=== PATIENT | male | born 1930 | race Caucasian/White ===

== ENCOUNTER 2017-03-11 14:14 | Inpatient (IN) | payer MEDICARE, OTHER ==
[~2017-03-11] VITALS: Ht 180.3 cm; Wt 75.5 kg
[2017-03-11] MEDS ORDERED: POLY17PO3 PO (15:16)
[2017-03-11] MEDS ORDERED: OLAN10TA9 PO (15:16)
[2017-03-11] MEDS ORDERED: TAMS0.4C2 PO (15:16)
[2017-03-11] MEDS ORDERED: LISI-170 PO (15:16)
[2017-03-11] MEDS ORDERED: ASPI-621 PO (15:16)
[2017-03-11] MEDS ORDERED: SENN-66 PO (15:16)
[2017-03-11] MEDS ORDERED: MAGN420T PO (15:16)
[2017-03-11 15:37] LABS: HEMOGLOBIN 12.2 g/dL (13.7-18.0); WHITE BLOOD COUNT 8.3 x10^3/uL (3.4-10)
[2017-03-11 15:44] LABS: ASPARTATE AMINO TRANSFERASE 9 U/L (15-37); BLOOD UREA NITROGEN 25 mg/dL (7-18)
[2017-03-11] MEDS ORDERED: CEFTRIAXONE PMX 1GM/50ML 50 ML ONE (16:26)
[2017-03-11] MEDS ORDERED: CEFTRIAXONE PMX 1GM/50ML 50 ML IV ONE (16:30)
[2017-03-11] MEDS ORDERED: SENNA/DOCUSATE TABLET PO PRN (17:00)
[2017-03-11] MEDS ORDERED: ACETAMINOPHEN 325 MG TABLET PO PRN (17:00)
[2017-03-11 17:54] VITALS: BP 188/76
[2017-03-11 19:48] VITALS: BP 158/74
[2017-03-11] MEDS: LISINOPRIL 20 MG TABLET PO SCH (22:54)
[2017-03-11] MEDS: OLANZAPINE 10 MG TABLET PO SCH (22:54)
[2017-03-11] MEDS: SODIUM CHLORIDE 0.9% 1,000 ML IV SCH (22:55)
[2017-03-12 01:41] VITALS: BP 171/74
[2017-03-12] MEDS ORDERED: hydrALAzine 20 MG/ML, 1ML IV ONE (03:00)
[2017-03-12 04:27] VITALS: BP 177/87
[2017-03-12 05:03] LABS: HEMATOCRIT 34.3 % (39.2-51.8); HEMOGLOBIN 11.3 g/dL (13.7-18.0); WHITE BLOOD COUNT 6.1 x10^3/uL (3.4-10)
[2017-03-12 05:12] LABS: BLOOD UREA NITROGEN 21 mg/dL (7-18)
[2017-03-12] MEDS: SODIUM CHLORIDE 0.9% 1,000 ML IV SCH (06:43)
[2017-03-12 07:53] VITALS: BP 160/74
[2017-03-12] MEDS ORDERED: MAGNESIUM OXIDE 420 MG PO SCH (09:00)
[2017-03-12] MEDS: TAMSULOSIN 0.4 MG CAP.ER.24H PO SCH (09:41)
[2017-03-12] MEDS: ASPIRIN 81 MG TABLET EC PO SCH (09:41)
[2017-03-12 12:59] VITALS: BP 134/66
[2017-03-12] MEDS: CEFTRIAXONE PMX 1GM/50ML 50 ML IV SCH (16:01)
[2017-03-12] MEDS ORDERED: OMNIPAQUE 350 MG/ML, 100ML BOTTLE ONE (18:06)
[2017-03-12 20:43] VITALS: BP 180/89
[2017-03-12] MEDS: LISINOPRIL 20 MG TABLET PO SCH (22:00)
[2017-03-12] MEDS: SODIUM CHLORIDE FLUSH 10ML SYR IVF SCH (22:00)
[2017-03-12] MEDS: OLANZAPINE 10 MG TABLET PO SCH (22:01)
[2017-03-13 02:06] VITALS: BP 172/74
[2017-03-13 06:02] LABS: HEMATOCRIT 36.2 % (39.2-51.8); HEMOGLOBIN 11.8 g/dL (13.7-18.0); WHITE BLOOD COUNT 5.6 x10^3/uL (3.4-10)
[2017-03-13 06:11] LABS: BLOOD UREA NITROGEN 15 mg/dL (7-18)
[2017-03-13] MEDS: ASPIRIN 81 MG TABLET EC PO SCH (10:18)
[2017-03-13] MEDS: TAMSULOSIN 0.4 MG CAP.ER.24H PO SCH (10:18)
[2017-03-13] MEDS: AMLODIPINE 5 MG TABLET PO SCH (10:18)
[2017-03-13] MEDS: SODIUM CHLORIDE FLUSH 10ML SYR IVF SCH ×2 (10:18→20:31)
[2017-03-13] MEDS: CEFTRIAXONE PMX 1GM/50ML 50 ML IV SCH (15:59)
[2017-03-13] MEDS: LISINOPRIL 20 MG TABLET PO SCH (20:31)
[2017-03-13] MEDS: OLANZAPINE 10 MG TABLET PO SCH (20:31)
[2017-03-13 21:54] VITALS: BP 154/75
[2017-03-14 01:47] VITALS: BP 143/65
[2017-03-14 05:34] LABS: HEMATOCRIT 33.7 % (39.2-51.8); HEMOGLOBIN 11.2 g/dL (13.7-18.0); WHITE BLOOD COUNT 5.3 x10^3/uL (3.4-10)
[2017-03-14 06:31] VITALS: BP 187/77
[2017-03-14] MEDS ORDERED: CEFD300C37 PO (08:21)
[2017-03-14] MEDS ORDERED: CEFDINIR 300 MG CAPSULE PO SCH (09:00)
[2017-03-14] MEDS: SODIUM CHLORIDE FLUSH 10ML SYR IVF SCH (09:00)
[2017-03-14] MEDS: ASPIRIN 81 MG TABLET EC PO SCH (09:48)
[2017-03-14] MEDS: AMLODIPINE 5 MG TABLET PO SCH (09:48)
[2017-03-14] MEDS: TAMSULOSIN 0.4 MG CAP.ER.24H PO SCH (09:48)
[2017-03-14 15:17] VITALS: BP 151/76
== END 2017-03-14 17:14 | disposition home or self-care (01) | DRG 689 ==
LOC: ED 16:00 → INTOOBSV 16:03 → EDIP 16:03 → OBSVTOIN 16:03 → ED 16:14 → 3NE 17:44
PROVIDERS: ADMIT Internal Medicine; ATTEND Internal Medicine
DX: N39.0 Urinary tract infection, site not specified (principal); E43 Unspecified severe protein-calorie malnutrition; R04.2 Hemoptysis; I10 Essential (primary) hypertension; N28.1 Cyst of kidney, acquired; Z66 Do not resuscitate; Z74.09 Other reduced mobility; Z79.82 Long term (current) use of aspirin; Z79.899 Other long term (current) drug therapy; Z86.73 Personal history of transient ischemic attack (TIA), and cerebral infarction without residual deficits; Z87.01 Personal history of pneumonia (recurrent); Z88.8 Allergy status to other drugs, medicaments and biological substances; Z99.3 Dependence on wheelchair; J44.9 Chronic obstructive pulmonary disease, unspecified
CPT/HCPCS: 36415; 71010; 71275; 76700; 80048; 80053; 81001; 83605; 83690; 83735; 84100; 84443; 85025; 85610; 87040; 87086; 93005; 96365; J0696; Q9967; J0360; J7030

== ENCOUNTER 2018-02-08 12:56 | Inpatient (IN) | payer MEDICARE ==
[~2018-02-08] VITALS: Ht 180.3 cm; Wt 75.2 kg
[~2018-02-08 12:56] MED LIST: ASPI-621 PO; CEFD300C37 PO; LISI-170 PO; MAGN420T PO; OLAN10TA9 PO; POLY17PO3 PO; SENN-66 PO; TAMS0.4C2 PO
[2018-02-08] MEDS ORDERED: SODIUM CHLORIDE 0.9% 1,000ML IVBOLUS ONE (13:30)
[2018-02-08 14:25] LABS: ALANINE AMINOTRANSFERASE 16 U/L (12-78); ALBUMIN 2.4 g/dL (3.4-5.0); ANION GAP 6 mmol/L (5-15); CALCIUM 8.4 mg/dL (8.5-10.1); CHLORIDE 104 mmol/L (98-107); CREATININE 1.33 mg/dL (0.7-1.3)
[2018-02-08 14:27] LABS: ALKALINE PHOSPHATASE 63 U/L (45-117); BILIRUBIN,TOTAL 0.3 mg/dL (0.2-1.0); TOTAL PROTEIN 7.9 g/dL (6.4-8.2)
[2018-02-08 14:37] LABS: BASOPHILS # (AUTO) 0.02 x10^3/uL (0-0.1); BASOPHILS % (AUTO) 0 % (0-1); EOSINOPHILS # (AUTO) 0.13 x10^3/uL (0-0.4); EOSINOPHILS % (AUTO) 2 % (1-7); LYMPHOCYTES # (AUTO) 1.82 x10^3/uL (1-3.4); LYMPHOCYTES % (AUTO) 29 % (22-44); MD NO; MEAN CORPUSCULAR HEMOGLOBIN 30.7 pg (27.5-34.5); MEAN CORPUSCULAR HGB CONC 33.1 g/dL (33.2-36.2); MEAN CORPUSCULAR VOLUME 92.6 fL (81-97); MEAN PLATELET VOLUME 8.5 fL (7.4-10.4); MONOCYTES # (AUTO) 0.62 x10^3/uL (0.2-0.8); MONOCYTES % (AUTO) 10 % (2-9); NEUTROPHILS # (AUTO) 3.57 x10^3/uL (1.8-6.8); NEUTROPHILS % (AUTO) 58 % (42-75); PLATELET COUNT 221 x10^3/uL (130-400); RED BLOOD COUNT 3.15 x10^6/uL (4.38-5.82); RED CELL DISTRIBUTION WIDTH 14.7 % (9.4-14.8)
[2018-02-08 15:01] LABS: CULTURE INDICATED? YES; MICROSCOPIC INDICATED
[2018-02-08] MEDS ORDERED: CEFTRIAXONE PMX 1GM/50ML 50 ML IV ONE (15:30)
[2018-02-08 16:20] VITALS: BP 150/67
[2018-02-08] MEDS ORDERED: TEMAZEPAM 15 MG CAPSULE PO PRN (16:30)
[2018-02-08] MEDS ORDERED: hydrALAzine 20 MG/ML, 1ML IVPush PRN (16:30)
[2018-02-08] MEDS ORDERED: ONDANSETRON 2MG/ML, 2ML IVPush PRN (16:30)
[2018-02-08] MEDS ORDERED: morphine SULFATE 10 MG/ML, 1ML IVPush PRN (16:30)
[2018-02-08] MEDS ORDERED: ACETAMINOPHEN 325 MG TABLET PO PRN (16:30)
[2018-02-08] MEDS: SODIUM CHLORIDE 0.9% 1,000 ML IV SCH (16:57)
[2018-02-08] MEDS: HEPARIN 5,000 UNITS/ML, 1ML SQ SCH ×2 (16:58→17:05)
[2018-02-08] MEDS ORDERED: SENNA/DOCUSATE TABLET PO PRN (17:00)
[2018-02-08 17:32] LABS: FREE T4 (FREE THYROXINE) 1.17 ng/dL (0.76-1.46); THYROID STIMULATING HORMONE 1.61 mIU/L (0.358-3.740)
[2018-02-08 18:17] LABS: CLOSTRIDIUM DIFFICILE ANTIGEN POSITIVE; CLOSTRIDIUM DIFFICILE TOXIN NEGATIVE (Negative)
[2018-02-08 18:56] VITALS: BP 136/66
[2018-02-08] MEDS: POLYETHYLENE GLYCOL 17 GM PACKET PO SCH (19:55)
[2018-02-08] MEDS: OLANZAPINE 10 MG TABLET PO SCH (19:55)
[2018-02-08] MEDS: LISINOPRIL 20 MG TABLET PO SCH (19:55)
[2018-02-09] MEDS: HEPARIN 5,000 UNITS/ML, 1ML SQ SCH ×4 (00:30→23:54)
[2018-02-09 01:15] VITALS: BP 157/66
[2018-02-09] MEDS: CEFTRIAXONE PMX 1GM/50ML 50 ML IV SCH (03:00)
[2018-02-09 05:03] LABS: ALANINE AMINOTRANSFERASE 14 U/L (12-78); ALBUMIN 2.2 g/dL (3.4-5.0); ANION GAP 7 mmol/L (5-15); CALCIUM 8.2 mg/dL (8.5-10.1); CHLORIDE 108 mmol/L (98-107); CREATININE 0.95 mg/dL (0.7-1.3); TOTAL IRON BINDING CAPACITY 182 mcg/dL (250-450)
[2018-02-09 05:07] LABS: ALKALINE PHOSPHATASE 60 U/L (45-117); BILIRUBIN,TOTAL 0.3 mg/dL (0.2-1.0); CHOLESTEROL, TOTAL 136 mg/dL (140-239); HDL CHOL % 20 % (26-37); HDL CHOLESTEROL (DIRECT) 27 mg/dL (40-60); LDL CHOLESTEROL,CALCULATED 73 mg/dL (54-169); LDL/HDL RATIO 2.7 (0.5-3.0); TOTAL PROTEIN 7.4 g/dL (6.4-8.2); TRIGLYCERIDES 178 mg/dL (50-200); VLDL CHOLESTEROL 36 mg/dL (0-25)
[2018-02-09 05:11] LABS: % IRON SATURATION 20 % (20-55); IRON LEVEL 37 mcg/dL (65-175)
[2018-02-09 05:13] LABS: BASOPHILS # (AUTO) 0.05 x10^3/uL (0-0.1); BASOPHILS % (AUTO) 1 % (0-1); EOSINOPHILS # (AUTO) 0.25 x10^3/uL (0-0.4); EOSINOPHILS % (AUTO) 5 % (1-7); LYMPHOCYTES # (AUTO) 1.53 x10^3/uL (1-3.4); LYMPHOCYTES % (AUTO) 29 % (22-44); MD SCAN; MEAN CORPUSCULAR HEMOGLOBIN 30.3 pg (27.5-34.5); MEAN CORPUSCULAR VOLUME 91.9 fL (81-97); MEAN PLATELET VOLUME 9.2 fL (7.4-10.4); MONOCYTES # (AUTO) 0.43 x10^3/uL (0.2-0.8); MONOCYTES % (AUTO) 8 % (2-9); NEUTROPHILS # (AUTO) 3.11 x10^3/uL (1.8-6.8); NEUTROPHILS % (AUTO) 58 % (42-75); PLATELET COUNT 183 x10^3/uL (130-400); RED BLOOD COUNT 3.28 x10^6/uL (4.38-5.82); RED CELL DISTRIBUTION WIDTH 14.8 % (9.4-14.8)
[2018-02-09] MEDS: SODIUM CHLORIDE 0.9% 1,000 ML IV SCH (05:55)
[2018-02-09 07:32] VITALS: BP 156/67
[2018-02-09] MEDS: TAMSULOSIN 0.4 MG CAP.ER.24H PO SCH (08:31)
[2018-02-09] MEDS: MAGNESIUM OXIDE 400 MG TABLET PO SCH (08:31)
[2018-02-09] MEDS: ASPIRIN 81 MG TABLET EC PO SCH (08:31)
[2018-02-09] MEDS: POLYETHYLENE GLYCOL 17 GM PACKET PO SCH ×2 (08:32→21:00)
[2018-02-09 12:52] VITALS: BP 156/55
[2018-02-09 18:50] VITALS: BP 162/77
[2018-02-09] MEDS: LISINOPRIL 20 MG TABLET PO SCH (19:32)
[2018-02-09] MEDS: OLANZAPINE 10 MG TABLET PO SCH (19:33)
[2018-02-10 01:53] VITALS: BP 136/70
[2018-02-10] MEDS: CEFTRIAXONE PMX 1GM/50ML 50 ML IV SCH (03:25)
[2018-02-10 07:56] VITALS: BP 170/74
[2018-02-10] MEDS: HEPARIN 5,000 UNITS/ML, 1ML SQ SCH ×3 (08:20→23:28)
[2018-02-10] MEDS: MAGNESIUM OXIDE 400 MG TABLET PO SCH (08:21)
[2018-02-10] MEDS: ASPIRIN 81 MG TABLET EC PO SCH (08:21)
[2018-02-10] MEDS: POLYETHYLENE GLYCOL 17 GM PACKET PO SCH ×2 (08:21→21:07)
[2018-02-10] MEDS: TAMSULOSIN 0.4 MG CAP.ER.24H PO SCH (08:21)
[2018-02-10 08:34] VITALS: BP 146/64
[2018-02-10 17:21] VITALS: BP 167/80
[2018-02-10] MEDS: LISINOPRIL 20 MG TABLET PO SCH ×2 (17:24→21:07)
[2018-02-10 19:04] VITALS: BP 143/69
[2018-02-10] MEDS: OLANZAPINE 10 MG TABLET PO SCH (21:07)
[2018-02-11 01:15] VITALS: BP 156/72
[2018-02-11] MEDS: CEFTRIAXONE PMX 1GM/50ML 50 ML IV SCH (03:22)
[2018-02-11 07:12] VITALS: BP 162/70
[2018-02-11] MEDS: POLYETHYLENE GLYCOL 17 GM PACKET PO SCH (08:26)
[2018-02-11] MEDS: ASPIRIN 81 MG TABLET EC PO SCH (08:27)
[2018-02-11] MEDS: MAGNESIUM OXIDE 400 MG TABLET PO SCH (08:27)
[2018-02-11] MEDS: TAMSULOSIN 0.4 MG CAP.ER.24H PO SCH (08:27)
[2018-02-11] MEDS: LISINOPRIL 20 MG TABLET PO SCH (08:28)
[2018-02-11] MEDS: HEPARIN 5,000 UNITS/ML, 1ML SQ SCH (08:29)
[2018-02-11] MEDS ORDERED: LACT1CAP24 PO (11:13)
[2018-02-11] MEDS ORDERED: CEFD300C37 PO (11:13)
[2018-02-11] MEDS ORDERED: SIMV10TA PO (11:42)
== END 2018-02-11 14:19 | disposition home or self-care (01) | DRG 682 ==
LOC: ED 15:22 → EDIP 15:27 → SUATTDRO 15:45 → ED 15:49 → 3NW 16:05
PROVIDERS: ADMIT Hospitalist; ATTEND Hospitalist
PROC: 0T9B70Z Drainage of Bladder with Drainage Device, Via Natural or Artificial Opening (ICD-10-PCS; principal; 2018-02-08)
DX: N17.0 Acute kidney failure with tubular necrosis (principal); E43 Unspecified severe protein-calorie malnutrition; N39.0 Urinary tract infection, site not specified; D64.9 Anemia, unspecified; E86.0 Dehydration; B96.20 Unspecified Escherichia coli [E. coli] as the cause of diseases classified elsewhere; Z88.8 Allergy status to other drugs, medicaments and biological substances; E78.5 Hyperlipidemia, unspecified; F31.9 Bipolar disorder, unspecified; I10 Essential (primary) hypertension; N40.0 Benign prostatic hyperplasia without lower urinary tract symptoms; I69.398 Other sequelae of cerebral infarction; Z99.3 Dependence on wheelchair; Z68.23 Body mass index [BMI] 23.0-23.9, adult
CPT/HCPCS: 36415; 80053; 80061; 81001; 83540; 83550; 83605; 83735; 84100; 84145; 84439; 84443; 85025; 87040; 87077; 87086; 87186; 87324; 87493; 96361; 96374; J0696; J1644; J7030

== ENCOUNTER 2018-04-13 22:31 | Inpatient (IN) | payer MEDICARE, OTHER ==
[~2018-04-13] VITALS: Ht 182.9 cm; Wt 72.0 kg
[~2018-04-13 22:31] MED LIST changes: +LACT1CAP24 PO; +SIMV10TA PO
[2018-04-13] MEDS ORDERED: SODIUM CHLORIDE 0.9% 1,000 ML IV ONE (22:44)
[2018-04-13 23:23] LABS: MEAN CORPUSCULAR HEMOGLOBIN 31.3 pg (27.5-34.5); MEAN CORPUSCULAR VOLUME 92.1 fL (81-97); MEAN PLATELET VOLUME 8.5 fL (7.4-10.4); PLATELET COUNT 114 x10^3/uL (130-400); RED BLOOD COUNT 2.91 x10^6/uL (4.38-5.82); RED CELL DISTRIBUTION WIDTH 15.3 % (9.4-14.8)
[2018-04-13 23:28] LABS: ALANINE AMINOTRANSFERASE 17 U/L (12-78); ALBUMIN 2.2 g/dL (3.4-5.0); ANION GAP 6 mmol/L (5-15); CALCIUM 8.1 mg/dL (8.5-10.1); CHLORIDE 103 mmol/L (98-107)
[2018-04-13 23:31] LABS: ALKALINE PHOSPHATASE 147 U/L (45-117); BILIRUBIN,TOTAL 0.5 mg/dL (0.2-1.0); CREATININE 1.44 mg/dL (0.7-1.3); TOTAL PROTEIN 6.5 g/dL (6.4-8.2)
[2018-04-13] MEDS ORDERED: CEFTRIAXONE PMX 1GM/50ML 50 ML ONE (23:51)
[2018-04-13 23:59] LABS: MICROSCOPIC INDICATED
[2018-04-14] MEDS ORDERED: CEFTRIAXONE 1,000 MG in SODIUM CHLORIDE 0.9% 50 ML IVPB ONE
[2018-04-14 00:09] LABS: CULTURE INDICATED? YES
[2018-04-14 00:14] LABS: BASOPHILS % (AUTO) 0 % (0-1); EOSINOPHILS # (AUTO) 0.01 x10^3/uL (0-0.4); EOSINOPHILS % (AUTO) 0 % (1-7); LYMPHOCYTES # (AUTO) 0.12 x10^3/uL (1-3.4); LYMPHOCYTES % (AUTO) 3 % (22-44); MD SCAN; MONOCYTES # (AUTO) 0.01 x10^3/uL (0.2-0.8); MONOCYTES % (AUTO) 0 % (2-9); NEUTROPHILS # (AUTO) 4.69 x10^3/uL (1.8-6.8); NEUTROPHILS % (AUTO) 97 % (42-75)
[2018-04-14] MEDS ORDERED: NOREPINEPHRINE 4 MG in SODIUM CHLORIDE 0.9% 246 ML IV PRN ×2 (00:30→01:00)
[2018-04-14] MEDS ORDERED: SODIUM CHLORIDE 0.9% 1,000ML IVBOLUS ONE ×2 (00:30)
[2018-04-14] MEDS ORDERED: PHARMACOKINETIC CONSULTATION MC ONE (01:00)
[2018-04-14] MEDS ORDERED: POLYETHYLENE GLYCOL 17 GM PACKET PO PRN (01:00)
[2018-04-14] MEDS ORDERED: ONDANSETRON 2MG/ML, 2ML IVPush PRN (01:00)
[2018-04-14] MEDS ORDERED: VANCOMYCIN PER PHARMACY MC PRN ×2 (01:00→11:30)
[2018-04-14] MEDS ORDERED: morphine SULFATE 10 MG/ML, 1ML IVPush PRN (01:00)
[2018-04-14] MEDS ORDERED: DOCUSATE 100 MG CAPSULE PO PRN (01:00)
[2018-04-14] MEDS ORDERED: VANCOMYCIN 1,600 MG in SODIUM CHLORIDE 0.9% 250 ML IV ONE (01:00)
[2018-04-14] MEDS ORDERED: HYDROcodone/APAP 5/325 TABLET PO PRN (01:00)
[2018-04-14] MEDS ORDERED: ACETAMINOPHEN 325 MG TABLET PO PRN (01:00)
[2018-04-14] MEDS: ENOXAPARIN 40 MG/0.4 ML SQ SCH (02:10)
[2018-04-14 02:22] VITALS: BP 97/43
[2018-04-14] MEDS ORDERED: NOREPINEPHRINE 8 MG in SODIUM CHLORIDE 0.9% 242 ML IV PRN (04:06)
[2018-04-14] MEDS: NS + 20MEQ KCL 1,000 ML IV SCH ×2 (04:16→12:39)
[2018-04-14 04:59] LABS: MEAN CORPUSCULAR HEMOGLOBIN 31.9 pg (27.5-34.5); MEAN CORPUSCULAR VOLUME 93.7 fL (81-97); MEAN PLATELET VOLUME 9.1 fL (7.4-10.4); PLATELET COUNT 108 x10^3/uL (130-400); RED BLOOD COUNT 2.86 x10^6/uL (4.38-5.82); RED CELL DISTRIBUTION WIDTH 14.6 % (9.4-14.8)
[2018-04-14 05:14] LABS: ANION GAP 6 mmol/L (5-15); CALCIUM 7.5 mg/dL (8.5-10.1); CHLORIDE 110 mmol/L (98-107); CREATININE 1.17 mg/dL (0.7-1.3)
[2018-04-14] MEDS ORDERED: VASOPRESSIN 100 UNIT in SODIUM CHLORIDE 0.9% 495 ML IV PRN (05:30)
[2018-04-14 05:34] LABS: MD YES
[2018-04-14 05:36] LABS: ANISOCYTOSIS 1+; BAND#(MANUAL) 0.92 x10^3/uL; BANDS%(MANUAL) 7 % (0-7); LYMPH#(MANUAL) 0.66 x10^3/uL (1-3.4); LYMPHS% (MANUAL) 5 % (22-44); MONOS#(MANUAL) 0.26 x10^3/uL (0.3-2.7); MONOS% (MANUAL) 2 % (2-9); OVALOCYTES 1+; SEG#(MANUAL) 11.35 x10^3/uL (1.8-6.8); SEGS% (MANUAL) 86 % (42-75)
[2018-04-14 05:37] LABS: <PLATELET ESTIMATE> ADEQUATE; <PLT MORPHOLOGY> NORMAL PLT MORPH
[2018-04-14] MEDS: TAMSULOSIN 0.4 MG CAP.ER.24H PO SCH (08:36)
[2018-04-14] MEDS: SENNA/DOCUSATE TABLET PO SCH (08:36)
[2018-04-14] MEDS: ASPIRIN 81 MG TABLET EC PO SCH (08:36)
[2018-04-14] MEDS: FAMOTIDINE 20 MG TABLET PO SCH ×2 (08:36→21:20)
[2018-04-14] MEDS: MEROPENEM 1 GM in SODIUM CHLORIDE 0.9% 100 ML IV SCH ×2 (11:53→20:45)
[2018-04-14] MEDS ORDERED: PHARMACOKINETIC MONITORING MC PRN (12:00)
[2018-04-14] MEDS ORDERED: VANCOMYCIN 1,500 MG in SODIUM CHLORIDE 0.9% 250 ML IV SCH (12:30)
[2018-04-14] MEDS: SIMVASTATIN 5 MG TABLET PO SCH (21:19)
[2018-04-14] MEDS: OLANZAPINE 10 MG TABLET PO SCH (21:19)
[2018-04-15] MEDS ORDERED: CEFTRIAXONE PMX 1GM/50ML 50 ML IV SCH
[2018-04-15] MEDS: ENOXAPARIN 40 MG/0.4 ML SQ SCH ×2 (01:00→01:56)
[2018-04-15] MEDS: MEROPENEM 1 GM in SODIUM CHLORIDE 0.9% 100 ML IV SCH ×3 (03:40→19:43)
[2018-04-15 05:05] LABS: ALANINE AMINOTRANSFERASE 16 U/L (12-78); ALBUMIN 1.9 g/dL (3.4-5.0); ANION GAP 8 mmol/L (5-15); CALCIUM 7.8 mg/dL (8.5-10.1); CHLORIDE 114 mmol/L (98-107)
[2018-04-15 05:08] LABS: ALKALINE PHOSPHATASE 73 U/L (45-117); BILIRUBIN,TOTAL 0.3 mg/dL (0.2-1.0); TOTAL PROTEIN 5.7 g/dL (6.4-8.2)
[2018-04-15 05:13] LABS: MEAN CORPUSCULAR HEMOGLOBIN 31.6 pg (27.5-34.5); MEAN CORPUSCULAR HGB CONC 33.9 g/dL (33.2-36.2); MEAN CORPUSCULAR VOLUME 93.3 fL (81-97); RED BLOOD COUNT 2.66 x10^6/uL (4.38-5.82); RED CELL DISTRIBUTION WIDTH 15.9 % (9.4-14.8)
[2018-04-15 05:55] LABS: BASOPHILS # (AUTO) 0.02 x10^3/uL (0-0.1); BASOPHILS % (AUTO) 0 % (0-1); EOSINOPHILS # (AUTO) 0.15 x10^3/uL (0-0.4); EOSINOPHILS % (AUTO) 3 % (1-7); LYMPHOCYTES # (AUTO) 0.88 x10^3/uL (1-3.4); LYMPHOCYTES % (AUTO) 15 % (22-44); MD SCAN; MEAN PLATELET VOLUME 8.8 fL (7.4-10.4); MONOCYTES # (AUTO) 0.58 x10^3/uL (0.2-0.8); MONOCYTES % (AUTO) 10 % (2-9); NEUTROPHILS # (AUTO) 4.37 x10^3/uL (1.8-6.8); NEUTROPHILS % (AUTO) 73 % (42-75); PLATELET COUNT 95 x10^3/uL (130-400)
[2018-04-15] MEDS: D5%-0.9% NACL+KCL 20MEQ 1,000 ML IV SCH ×2 (06:16→18:22)
[2018-04-15] MEDS: ASPIRIN 81 MG TABLET EC PO SCH (08:47)
[2018-04-15] MEDS: TAMSULOSIN 0.4 MG CAP.ER.24H PO SCH (08:47)
[2018-04-15] MEDS: SENNA/DOCUSATE TABLET PO SCH (08:47)
[2018-04-15] MEDS: FAMOTIDINE 20 MG TABLET PO SCH ×2 (08:47→20:47)
[2018-04-15] MEDS ORDERED: VANCOMYCIN 1,500 MG in SODIUM CHLORIDE 0.9% 250 ML IV SCH (14:00)
[2018-04-15 15:06] VITALS: BP 160/70
[2018-04-15] MEDS ORDERED: POTASSIUM CHLORIDE 20 MEQ TAB.ER.PRT PO ONE (17:00)
[2018-04-15 18:40] VITALS: BP 161/68
[2018-04-15] MEDS: OLANZAPINE 10 MG TABLET PO SCH (20:47)
[2018-04-15] MEDS: SIMVASTATIN 5 MG TABLET PO SCH (20:49)
[2018-04-16] MEDS: ENOXAPARIN 40 MG/0.4 ML SQ SCH (00:53)
[2018-04-16 01:20] VITALS: BP 163/67
[2018-04-16] MEDS: MEROPENEM 1 GM in SODIUM CHLORIDE 0.9% 100 ML IV SCH ×3 (02:46→18:26)
[2018-04-16 05:42] LABS: CHLORIDE 114 mmol/L (98-107)
[2018-04-16 05:46] LABS: BASOPHILS # (AUTO) 0.02 x10^3/uL (0-0.1); BASOPHILS % (AUTO) 0 % (0-1); EOSINOPHILS # (AUTO) 0.17 x10^3/uL (0-0.4); EOSINOPHILS % (AUTO) 3 % (1-7); LYMPHOCYTES # (AUTO) 1.21 x10^3/uL (1-3.4); LYMPHOCYTES % (AUTO) 24 % (22-44); MD NO; MEAN CORPUSCULAR HEMOGLOBIN 31.2 pg (27.5-34.5); MEAN CORPUSCULAR HGB CONC 33.4 g/dL (33.2-36.2); MEAN CORPUSCULAR VOLUME 93.4 fL (81-97); MEAN PLATELET VOLUME 9.1 fL (7.4-10.4); MONOCYTES # (AUTO) 0.49 x10^3/uL (0.2-0.8); MONOCYTES % (AUTO) 10 % (2-9); NEUTROPHILS # (AUTO) 3.24 x10^3/uL (1.8-6.8); NEUTROPHILS % (AUTO) 63 % (42-75); PLATELET COUNT 130 x10^3/uL (130-400); RED CELL DISTRIBUTION WIDTH 15.7 % (9.4-14.8)
[2018-04-16 05:49] LABS: ALANINE AMINOTRANSFERASE 18 U/L (12-78); ALBUMIN 2.1 g/dL (3.4-5.0); ALKALINE PHOSPHATASE 91 U/L (45-117); ANION GAP 6 mmol/L (5-15); BILIRUBIN,TOTAL 0.2 mg/dL (0.2-1.0); CALCIUM 8.3 mg/dL (8.5-10.1); CREATININE 0.82 mg/dL (0.7-1.3); TOTAL PROTEIN 6.2 g/dL (6.4-8.2)
[2018-04-16] MEDS: D5%-0.9% NACL+KCL 20MEQ 1,000 ML IV SCH (06:35)
[2018-04-16 06:59] LABS: HIT RESULT NEGATIVE (NEGATIVE)
[2018-04-16 08:35] VITALS: BP 162/59
[2018-04-16] MEDS: SENNA/DOCUSATE TABLET PO SCH (09:00)
[2018-04-16] MEDS: FAMOTIDINE 20 MG TABLET PO SCH ×2 (09:00→20:15)
[2018-04-16] MEDS: ASPIRIN 81 MG TABLET EC PO SCH (09:00)
[2018-04-16] MEDS: TAMSULOSIN 0.4 MG CAP.ER.24H PO SCH (09:00)
[2018-04-16 13:34] VITALS: BP 149/63
[2018-04-16 19:53] VITALS: BP 190/62
[2018-04-16] MEDS: LORazepam 2 MG/ML, 1ML IVPush PRN (20:15)
[2018-04-16] MEDS: SIMVASTATIN 5 MG TABLET PO SCH (20:15)
[2018-04-16] MEDS: OLANZAPINE 10 MG TABLET PO SCH (20:16)
[2018-04-17] MEDS: ENOXAPARIN 40 MG/0.4 ML SQ SCH ×2 (00:55→22:44)
[2018-04-17 01:54] VITALS: BP 174/66
[2018-04-17] MEDS: MEROPENEM 1 GM in SODIUM CHLORIDE 0.9% 100 ML IV SCH ×3 (03:17→19:42)
[2018-04-17] MEDS: FAMOTIDINE 20 MG TABLET PO SCH ×2 (08:07→19:43)
[2018-04-17] MEDS: SENNA/DOCUSATE TABLET PO SCH (08:07)
[2018-04-17] MEDS: TAMSULOSIN 0.4 MG CAP.ER.24H PO SCH (08:07)
[2018-04-17] MEDS: ASPIRIN 81 MG TABLET EC PO SCH (08:07)
[2018-04-17 08:50] VITALS: BP 162/81
[2018-04-17 13:13] VITALS: BP 165/90
[2018-04-17 18:58] VITALS: BP 182/72
[2018-04-17] MEDS: LORazepam 2 MG/ML, 1ML IVPush PRN (19:43)
[2018-04-17] MEDS: SIMVASTATIN 5 MG TABLET PO SCH (19:43)
[2018-04-17] MEDS: OLANZAPINE 10 MG TABLET PO SCH (19:43)
[2018-04-18] MEDS: CEFTAZIDIME 2,000 MG in SODIUM CHLORIDE 0.9% 50 ML IV SCH ×3 (00:05→16:22)
[2018-04-18 01:13] VITALS: BP 168/73
[2018-04-18 04:30] LABS: BASOPHILS # (AUTO) 0.02 x10^3/uL (0-0.1); BASOPHILS % (AUTO) 0 % (0-1); EOSINOPHILS # (AUTO) 0.34 x10^3/uL (0-0.4); EOSINOPHILS % (AUTO) 6 % (1-7); LYMPHOCYTES # (AUTO) 1.73 x10^3/uL (1-3.4); LYMPHOCYTES % (AUTO) 31 % (22-44); MD NO; MEAN CORPUSCULAR HEMOGLOBIN 30.8 pg (27.5-34.5); MEAN CORPUSCULAR HGB CONC 33.3 g/dL (33.2-36.2); MEAN CORPUSCULAR VOLUME 92.5 fL (81-97); MEAN PLATELET VOLUME 8.8 fL (7.4-10.4); MONOCYTES # (AUTO) 0.55 x10^3/uL (0.2-0.8); MONOCYTES % (AUTO) 10 % (2-9); NEUTROPHILS # (AUTO) 2.94 x10^3/uL (1.8-6.8); NEUTROPHILS % (AUTO) 53 % (42-75); PLATELET COUNT 181 x10^3/uL (130-400); RED BLOOD COUNT 3.07 x10^6/uL (4.38-5.82); RED CELL DISTRIBUTION WIDTH 15.2 % (9.4-14.8)
[2018-04-18 04:36] LABS: CALCIUM 8.3 mg/dL (8.5-10.1); CHLORIDE 113 mmol/L (98-107)
[2018-04-18 04:40] LABS: ANION GAP 5 mmol/L (5-15); CREATININE 0.64 mg/dL (0.7-1.3)
[2018-04-18 06:35] VITALS: BP 139/77
[2018-04-18] MEDS: TAMSULOSIN 0.4 MG CAP.ER.24H PO SCH (08:27)
[2018-04-18] MEDS: ASPIRIN 81 MG TABLET EC PO SCH (08:27)
[2018-04-18] MEDS: FAMOTIDINE 20 MG TABLET PO SCH ×2 (08:27→19:28)
[2018-04-18] MEDS: SENNA/DOCUSATE TABLET PO SCH (08:27)
[2018-04-18 12:04] VITALS: BP 177/79
[2018-04-18 19:06] VITALS: BP 161/67
[2018-04-18] MEDS: ENOXAPARIN 40 MG/0.4 ML SQ SCH (19:15)
[2018-04-18] MEDS: OLANZAPINE 10 MG TABLET PO SCH (19:28)
[2018-04-18] MEDS: SIMVASTATIN 5 MG TABLET PO SCH (19:29)
[2018-04-19] MEDS: CEFTAZIDIME 2,000 MG in SODIUM CHLORIDE 0.9% 50 ML IV SCH ×3 (00:12→16:24)
[2018-04-19 01:41] VITALS: BP 158/67
[2018-04-19 07:36] VITALS: BP 156/67
[2018-04-19] MEDS: TAMSULOSIN 0.4 MG CAP.ER.24H PO SCH (09:05)
[2018-04-19] MEDS: ASPIRIN 81 MG TABLET EC PO SCH (09:05)
[2018-04-19] MEDS: FAMOTIDINE 20 MG TABLET PO SCH ×2 (09:05→21:59)
[2018-04-19] MEDS: SENNA/DOCUSATE TABLET PO SCH (09:05)
[2018-04-19 13:07] VITALS: BP 172/63
[2018-04-19 18:55] VITALS: BP 176/76
[2018-04-19 21:00] VITALS: BP 178/70
[2018-04-19] MEDS: OLANZAPINE 10 MG TABLET PO SCH (21:59)
[2018-04-19] MEDS: SIMVASTATIN 5 MG TABLET PO SCH (21:59)
[2018-04-20] MEDS: ENOXAPARIN 40 MG/0.4 ML SQ SCH (00:22)
[2018-04-20] MEDS: CEFTAZIDIME 2,000 MG in SODIUM CHLORIDE 0.9% 50 ML IV SCH ×3 (00:26→16:05)
[2018-04-20 01:11] VITALS: BP 158/65
[2018-04-20 08:24] VITALS: BP 183/80
[2018-04-20] MEDS: FINASTERIDE 5 MG TABLET PO SCH (08:37)
[2018-04-20] MEDS: SENNA/DOCUSATE TABLET PO SCH (08:37)
[2018-04-20] MEDS: TAMSULOSIN 0.4 MG CAP.ER.24H PO SCH (08:38)
[2018-04-20] MEDS: FAMOTIDINE 20 MG TABLET PO SCH ×2 (08:38→20:52)
[2018-04-20] MEDS: ASPIRIN 81 MG TABLET EC PO SCH (08:38)
[2018-04-20] MEDS: ERYTHROMYCIN OPHTH 0.5%, 1GM EACHEYE SCH ×3 (11:30→20:51)
[2018-04-20 13:02] VITALS: BP 168/85
[2018-04-20 19:40] VITALS: BP 182/77
[2018-04-20 20:50] VITALS: BP 150/81
[2018-04-20] MEDS: LISINOPRIL 20 MG TABLET PO SCH (20:51)
[2018-04-20] MEDS: OLANZAPINE 10 MG TABLET PO SCH (20:52)
[2018-04-20] MEDS: SIMVASTATIN 5 MG TABLET PO SCH (20:52)
[2018-04-21] MEDS: CEFTAZIDIME 2,000 MG in SODIUM CHLORIDE 0.9% 50 ML IV SCH ×3 (00:31→15:24)
[2018-04-21] MEDS: ENOXAPARIN 40 MG/0.4 ML SQ SCH (00:31)
[2018-04-21 02:00] VITALS: BP 157/74
[2018-04-21] MEDS: ERYTHROMYCIN OPHTH 0.5%, 1GM EACHEYE SCH ×4 (06:22→20:47)
[2018-04-21 08:00] VITALS: BP 157/67
[2018-04-21] MEDS: ASPIRIN 81 MG TABLET EC PO SCH (08:34)
[2018-04-21] MEDS: FINASTERIDE 5 MG TABLET PO SCH (08:35)
[2018-04-21] MEDS: SENNA/DOCUSATE TABLET PO SCH (08:35)
[2018-04-21] MEDS: TAMSULOSIN 0.4 MG CAP.ER.24H PO SCH (08:36)
[2018-04-21] MEDS: FAMOTIDINE 20 MG TABLET PO SCH ×2 (08:36→20:47)
[2018-04-21 13:35] VITALS: BP 127/86
[2018-04-21] MEDS ORDERED: CEFT2VIA IVPB (14:56)
[2018-04-21] MEDS ORDERED: ERYT1OIN5 EACHEYE (14:56)
[2018-04-21 19:15] VITALS: BP 158/82
[2018-04-21] MEDS: LISINOPRIL 20 MG TABLET PO SCH (20:47)
[2018-04-21] MEDS: SIMVASTATIN 5 MG TABLET PO SCH (20:47)
[2018-04-21] MEDS: OLANZAPINE 10 MG TABLET PO SCH (20:48)
[2018-04-22] MEDS: CEFTAZIDIME 2,000 MG in SODIUM CHLORIDE 0.9% 50 ML IV SCH ×2 (00:08→09:10)
[2018-04-22] MEDS: ENOXAPARIN 40 MG/0.4 ML SQ SCH (00:43)
[2018-04-22 01:23] VITALS: BP 157/81
[2018-04-22] MEDS: ERYTHROMYCIN OPHTH 0.5%, 1GM EACHEYE SCH ×2 (05:27→11:00)
[2018-04-22 08:30] VITALS: BP 151/69
[2018-04-22] MEDS: FINASTERIDE 5 MG TABLET PO SCH (09:10)
[2018-04-22] MEDS: ASPIRIN 81 MG TABLET EC PO SCH (09:10)
[2018-04-22] MEDS: TAMSULOSIN 0.4 MG CAP.ER.24H PO SCH (09:10)
[2018-04-22] MEDS: FAMOTIDINE 20 MG TABLET PO SCH (09:10)
[2018-04-22] MEDS: SENNA/DOCUSATE TABLET PO SCH (09:10)
[2018-04-22 14:30] VITALS: BP 148/73
== END 2018-04-22 16:18 | DRG 871 ==
LOC: ED 23:59 → SUATTDRO 04-14 00:40 → EDIP 04-14 01:19 → CCU 04-14 01:23 → 3NE 04-15 14:41
PROVIDERS: ADMIT Family Medicine; ATTEND Family Medicine
PROC: 0T9B70Z Drainage of Bladder with Drainage Device, Via Natural or Artificial Opening (ICD-10-PCS; 2018-04-13)
PROC: 02HV33Z Insertion of Infusion Device into Superior Vena Cava, Percutaneous Approach (ICD-10-PCS; principal; 2018-04-21)
PROC: B548ZZA Ultrasonography of Superior Vena Cava, Guidance (ICD-10-PCS; 2018-04-21)
DX: A41.9 Sepsis, unspecified organism (principal); R65.21 Severe sepsis with septic shock; N17.0 Acute kidney failure with tubular necrosis; E43 Unspecified severe protein-calorie malnutrition; R53.2 Functional quadriplegia; E87.1 Hypo-osmolality and hyponatremia; N30.00 Acute cystitis without hematuria; F31.9 Bipolar disorder, unspecified; I10 Essential (primary) hypertension; J45.909 Unspecified asthma, uncomplicated; H10.9 Unspecified conjunctivitis; D69.6 Thrombocytopenia, unspecified; B96.5 Pseudomonas (aeruginosa) (mallei) (pseudomallei) as the cause of diseases classified elsewhere; R33.9 Retention of urine, unspecified; Z86.73 Personal history of transient ischemic attack (TIA), and cerebral infarction without residual deficits; Z99.3 Dependence on wheelchair; Z88.8 Allergy status to other drugs, medicaments and biological substances
CPT/HCPCS: 36415; 36556; 36569; 71045; 76937; 77001; 80048; 80053; 81001; 82533; 83605; 83735; 84100; 84145; 85025; 86022; 87040; 87077; 87081; 87086; 87186; 93005; 96361; 96365; G0378; J0696; J0713; J1650; J2185; J3370; J3480; C1751; J2060; J7030; J7050

== ENCOUNTER 2018-05-22 09:50 | Inpatient (IN) | payer OTHER ==
[~2018-05-22] VITALS: Ht 182.9 cm; Wt 68.7 kg
[~2018-05-22 09:50] MED LIST changes: +CEFT2VIA IVPB; +ERYT1OIN5 EACHEYE
[2018-05-22 10:18] LABS: BASOPHILS # (AUTO) 0.02 x10^3/uL (0-0.1); BASOPHILS % (AUTO) 0 % (0-1); EOSINOPHILS # (AUTO) 0.16 x10^3/uL (0-0.4); EOSINOPHILS % (AUTO) 2 % (1-7); LYMPHOCYTES # (AUTO) 1.99 x10^3/uL (1-3.4); LYMPHOCYTES % (AUTO) 27 % (22-44); MD NO; MEAN CORPUSCULAR HEMOGLOBIN 30.9 pg (27.5-34.5); MEAN CORPUSCULAR HGB CONC 33.3 g/dL (33.2-36.2); MEAN CORPUSCULAR VOLUME 92.8 fL (81-97); MEAN PLATELET VOLUME 8.5 fL (7.4-10.4); MONOCYTES # (AUTO) 0.41 x10^3/uL (0.2-0.8); MONOCYTES % (AUTO) 6 % (2-9); NEUTROPHILS # (AUTO) 4.73 x10^3/uL (1.8-6.8); NEUTROPHILS % (AUTO) 65 % (42-75); PLATELET COUNT 179 x10^3/uL (130-400); RED BLOOD COUNT 3.87 x10^6/uL (4.38-5.82); RED CELL DISTRIBUTION WIDTH 14.8 % (9.4-14.8)
[2018-05-22] MEDS ORDERED: SODIUM CHLORIDE 0.9% 1,000ML IVBOLUS ONE (10:30)
[2018-05-22] MEDS ORDERED: SODIUM CHLORIDE FLUSH 10ML SYR IVF ONE (10:30)
[2018-05-22 10:31] LABS: ALANINE AMINOTRANSFERASE 14 U/L (12-78); ALBUMIN 2.9 g/dL (3.4-5.0); ANION GAP 7 mmol/L (5-15); CALCIUM 8.8 mg/dL (8.5-10.1); CHLORIDE 109 mmol/L (98-107); CREATININE 0.92 mg/dL (0.7-1.3)
[2018-05-22 10:35] LABS: ALKALINE PHOSPHATASE 77 U/L (45-117); BILIRUBIN,TOTAL 0.3 mg/dL (0.2-1.0); TOTAL PROTEIN 8.4 g/dL (6.4-8.2); TROPONIN I 0.018 ng/mL (0.000-0.045)
[2018-05-22 11:18] LABS: CULTURE INDICATED? YES; MICROSCOPIC INDICATED
[2018-05-22] MEDS ORDERED: FINA5TAB4 PO (11:23)
[2018-05-22] MEDS ORDERED: PANT20TA3 PO (11:25)
[2018-05-22] MEDS ORDERED: MAGN420T PO (11:25)
[2018-05-22] MEDS ORDERED: LACT-7 PO (11:27)
[2018-05-22] MEDS ORDERED: SODIUM CHLORIDE 0.9% 1,000 ML IV SCH (12:19)
[2018-05-22] MEDS ORDERED: ENALAPRILAT 1.25 MG/ML, 2ML IVPush PRN (12:30)
[2018-05-22] MEDS ORDERED: hydrALAzine 20 MG/ML, 1ML IVPush PRN (12:30)
[2018-05-22] MEDS ORDERED: SENNA/DOCUSATE TABLET PO PRN (12:30)
[2018-05-22] MEDS ORDERED: ACETAMINOPHEN 325 MG TABLET PO PRN (12:30)
[2018-05-22] MEDS ORDERED: LIDODERM 5% PATCH TD PRN (12:30)
[2018-05-22] MEDS ORDERED: METHOCARBAMOL 500 MG TABLET PO PRN (12:30)
[2018-05-22] MEDS ORDERED: BISACODYL 10 MG SUPP PR PRN (12:30)
[2018-05-22] MEDS ORDERED: ONDANSETRON ODT 4 MG PO PRN (12:30)
[2018-05-22] MEDS ORDERED: DOCUSATE 100 MG CAPSULE PO PRN (12:30)
[2018-05-22] MEDS ORDERED: ONDANSETRON 2MG/ML, 2ML IVPush PRN (12:30)
[2018-05-22] MEDS ORDERED: POLYETHYLENE GLYCOL 17 GM PACKET PO PRN (12:30)
[2018-05-22 14:15] VITALS: BP 156/68
[2018-05-22 14:18] LABS: TROPONIN I 0.059 ng/mL (0.000-0.045)
[2018-05-22] MEDS: ASPIRIN 81 MG TABLET CHEW PO/NG SCH (17:31)
[2018-05-22] MEDS: CEFTRIAXONE PMX 1GM/50ML 50 ML IV SCH (17:32)
[2018-05-22 19:05] VITALS: BP 190/80
[2018-05-22 19:10] VITALS: BP 188/79
[2018-05-22] MEDS: LISINOPRIL 20 MG TABLET PO SCH (19:45)
[2018-05-22] MEDS: OLANZAPINE 10 MG TABLET PO SCH (19:45)
[2018-05-22] MEDS: POLYETHYLENE GLYCOL 17 GM PACKET PO SCH (19:45)
[2018-05-22] MEDS ORDERED: LACTOSE FREE FOOD PO SCH (21:00)
[2018-05-23] VITALS (8 sets, daily range): BP systolic 138–206; BP diastolic 62–79
[2018-05-23 06:27] LABS: BASOPHILS # (AUTO) 0.02 x10^3/uL (0-0.1); BASOPHILS % (AUTO) 0 % (0-1); EOSINOPHILS # (AUTO) 0.22 x10^3/uL (0-0.4); EOSINOPHILS % (AUTO) 4 % (1-7); LYMPHOCYTES # (AUTO) 1.75 x10^3/uL (1-3.4); LYMPHOCYTES % (AUTO) 35 % (22-44); MD NO; MEAN CORPUSCULAR HEMOGLOBIN 30.9 pg (27.5-34.5); MEAN CORPUSCULAR HGB CONC 33.4 g/dL (33.2-36.2); MEAN CORPUSCULAR VOLUME 92.7 fL (81-97); MEAN PLATELET VOLUME 7.9 fL (7.4-10.4); MONOCYTES # (AUTO) 0.47 x10^3/uL (0.2-0.8); MONOCYTES % (AUTO) 10 % (2-9); NEUTROPHILS # (AUTO) 2.47 x10^3/uL (1.8-6.8); NEUTROPHILS % (AUTO) 50 % (42-75); PLATELET COUNT 160 x10^3/uL (130-400); RED BLOOD COUNT 3.19 x10^6/uL (4.38-5.82); RED CELL DISTRIBUTION WIDTH 14.9 % (9.4-14.8)
[2018-05-23 06:37] LABS: ALBUMIN 2.5 g/dL (3.4-5.0); ANION GAP 5 mmol/L (5-15); CALCIUM 8.4 mg/dL (8.5-10.1); CHLORIDE 111 mmol/L (98-107)
[2018-05-23 06:46] LABS: ALANINE AMINOTRANSFERASE 12 U/L (12-78); ALKALINE PHOSPHATASE 71 U/L (45-117); BILIRUBIN,TOTAL 0.3 mg/dL (0.2-1.0); CHOL/HDL RATIO 3.8; CHOLESTEROL, TOTAL 134 mg/dL (140-239); CREATININE 0.73 mg/dL (0.7-1.3); HDL CHOL % 26 % (26-37); HDL CHOLESTEROL (DIRECT) 35 mg/dL (40-60); LDL CHOLESTEROL,CALCULATED 80 mg/dL (54-169); LDL/HDL RATIO 2.3 (0.5-3.0); TOTAL PROTEIN 7.4 g/dL (6.4-8.2); TRIGLYCERIDES 94 mg/dL (50-200); VLDL CHOLESTEROL 19 mg/dL (0-25)
[2018-05-23] MEDS: POLYETHYLENE GLYCOL 17 GM PACKET PO SCH ×2 (08:02→21:32)
[2018-05-23] MEDS: PANTOPRAZOLE 20MG TABLET PO SCH (09:24)
[2018-05-23] MEDS: ASPIRIN 81 MG TABLET CHEW PO/NG SCH (09:24)
[2018-05-23] MEDS: FINASTERIDE 5 MG TABLET PO SCH (09:24)
[2018-05-23] MEDS: TAMSULOSIN 0.4 MG CAP.ER.24H PO SCH (09:24)
[2018-05-23] MEDS: MAGNESIUM OXIDE 400 MG TABLET PO SCH (09:24)
[2018-05-23] MEDS: CEFTRIAXONE PMX 1GM/50ML 50 ML IV SCH (13:29)
[2018-05-23] MEDS: LISINOPRIL 20 MG TABLET PO SCH (15:04)
[2018-05-23] MEDS: ASA/APAP/ CAFFEINE TABLET PO PRN (21:30)
[2018-05-23] MEDS: OLANZAPINE 10 MG TABLET PO SCH (21:32)
[2018-05-24 02:20] VITALS: BP 169/77
[2018-05-24 06:05] LABS: BASOPHILS # (AUTO) 0.02 x10^3/uL (0-0.1); BASOPHILS % (AUTO) 1 % (0-1); EOSINOPHILS # (AUTO) 0.26 x10^3/uL (0-0.4); EOSINOPHILS % (AUTO) 5 % (1-7); LYMPHOCYTES # (AUTO) 1.73 x10^3/uL (1-3.4); LYMPHOCYTES % (AUTO) 33 % (22-44); MD NO; MEAN CORPUSCULAR HEMOGLOBIN 30.6 pg (27.5-34.5); MEAN CORPUSCULAR HGB CONC 33.3 g/dL (33.2-36.2); MEAN CORPUSCULAR VOLUME 91.9 fL (81-97); MEAN PLATELET VOLUME 9.1 fL (7.4-10.4); MONOCYTES # (AUTO) 0.58 x10^3/uL (0.2-0.8); MONOCYTES % (AUTO) 11 % (2-9); NEUTROPHILS # (AUTO) 2.61 x10^3/uL (1.8-6.8); NEUTROPHILS % (AUTO) 50 % (42-75); PLATELET COUNT 155 x10^3/uL (130-400); RED BLOOD COUNT 3.39 x10^6/uL (4.38-5.82); RED CELL DISTRIBUTION WIDTH 14.7 % (9.4-14.8)
[2018-05-24 06:07] LABS: ANION GAP 5 mmol/L (5-15); CALCIUM 8.6 mg/dL (8.5-10.1); CHLORIDE 110 mmol/L (98-107); CREATININE 0.77 mg/dL (0.7-1.3)
[2018-05-24 06:26] LABS: OCCULT BLOOD NEGATIVE (NEGATIVE)
[2018-05-24 07:34] VITALS: BP 192/88
[2018-05-24] MEDS: POLYETHYLENE GLYCOL 17 GM PACKET PO SCH ×2 (09:00→21:00)
[2018-05-24] MEDS: MAGNESIUM OXIDE 400 MG TABLET PO SCH (09:28)
[2018-05-24] MEDS: PANTOPRAZOLE 20MG TABLET PO SCH (09:28)
[2018-05-24] MEDS: ASPIRIN 81 MG TABLET CHEW PO/NG SCH (09:28)
[2018-05-24] MEDS: TAMSULOSIN 0.4 MG CAP.ER.24H PO SCH (09:29)
[2018-05-24] MEDS: FINASTERIDE 5 MG TABLET PO SCH (09:29)
[2018-05-24 12:08] VITALS: BP 164/92
[2018-05-24] MEDS ORDERED: LISINOPRIL 20 MG TABLET ONE (12:13)
[2018-05-24] MEDS ORDERED: LISINOPRIL 20 MG TABLET PO ONE (12:30)
[2018-05-24] MEDS: CEFTRIAXONE PMX 1GM/50ML 50 ML IV SCH (13:32)
[2018-05-24] MEDS: ASA/APAP/ CAFFEINE TABLET PO PRN (15:56)
[2018-05-24 19:29] VITALS: BP 184/77
[2018-05-24] MEDS: LISINOPRIL 20 MG TABLET PO SCH (21:00)
[2018-05-24] MEDS: OLANZAPINE 10 MG TABLET PO SCH (21:00)
[2018-05-25 00:45] VITALS: BP 190/70
[2018-05-25 07:29] VITALS: BP 163/73
[2018-05-25] MEDS: TAMSULOSIN 0.4 MG CAP.ER.24H PO SCH (08:43)
[2018-05-25] MEDS: MAGNESIUM OXIDE 400 MG TABLET PO SCH (08:43)
[2018-05-25] MEDS: FINASTERIDE 5 MG TABLET PO SCH (08:43)
[2018-05-25] MEDS: LISINOPRIL 20 MG TABLET PO SCH (08:43)
[2018-05-25] MEDS: PANTOPRAZOLE 20MG TABLET PO SCH (08:44)
[2018-05-25] MEDS: ASPIRIN 81 MG TABLET CHEW PO/NG SCH (08:44)
[2018-05-25] MEDS: POLYETHYLENE GLYCOL 17 GM PACKET PO SCH (08:46)
[2018-05-25] MEDS ORDERED: AMLODIPINE 5 MG TABLET PO SCH (09:00)
[2018-05-25 11:17] VITALS: BP 178/77
[2018-05-25] MEDS: CEFTRIAXONE PMX 1GM/50ML 50 ML IV SCH (12:44)
[2018-05-25 13:07] VITALS: BP 163/79
[2018-05-25] MEDS ORDERED: LISI-170 PO (13:21)
[2018-05-25] MEDS ORDERED: CEFD300C37 PO (13:21)
[2018-05-25] MEDS ORDERED: AMLO5TAB7 PO (13:21)
== END 2018-05-25 18:05 | disposition home or self-care (01) | DRG 689 ==
LOC: ED 10:16 → EDIP 11:22 → 4WST 13:03
PROVIDERS: ADMIT Hospitalist; ATTEND Hospitalist
DX: N39.0 Urinary tract infection, site not specified (principal); E43 Unspecified severe protein-calorie malnutrition; G45.9 Transient cerebral ischemic attack, unspecified; F31.9 Bipolar disorder, unspecified; D63.8 Anemia in other chronic diseases classified elsewhere; I10 Essential (primary) hypertension; K59.09 Other constipation; J45.909 Unspecified asthma, uncomplicated; N40.0 Benign prostatic hyperplasia without lower urinary tract symptoms; Z66 Do not resuscitate; I08.3 Combined rheumatic disorders of mitral, aortic and tricuspid valves; Z87.891 Personal history of nicotine dependence; Z79.899 Other long term (current) drug therapy; Z79.82 Long term (current) use of aspirin; I69.30 Unspecified sequelae of cerebral infarction; Z68.20 Body mass index [BMI] 20.0-20.9, adult
CPT/HCPCS: 36415; 70450; 70551; 71045; 80048; 80053; 80061; 81001; 82272; 82607; 82728; 83540; 83550; 83605; 83735; 84100; 84443; 84466; 84484; 85025; 87040; 87077; 87086; 87186; 93005; 93306; 93880; 99285; G0378; J0696; J0360; J7030